=== PATIENT | female | born 1955 | race African-American/Black ===

== ENCOUNTER 2017-11-02 18:36 | Emergency (ER) | payer OTHER | END 2017-11-02 20:00 | disposition home or self-care (01) | LOC: ER 18:36 | DX: M25.562 Pain in left knee (principal); E11.9 Type 2 diabetes mellitus without complications; I10 Essential (primary) hypertension; E66.9 Obesity, unspecified; Z68.34 Body mass index [BMI] 34.0-34.9, adult | CPT/HCPCS: 99281 ==